=== PATIENT | male | born 2000 | race American Indian/Alaskan Native ===

== ENCOUNTER 2021-09-16 17:07 | Emergency (ER) | payer OTHER ==
[2021-09-16 17:21] VITALS: BP 124/64
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
--- NOTE | 2021-09-16 19:18 | XRay Report ---
Thoracic spine 3 views INDICATION: Neck pain following injury IMPRESSION: No fracture or subluxation is identified. Limited views of T1-T3 on the arm up view. Signer Name: Faraz Molina MD Signed: 09/16/2021 7:14 PM Workstation Name: [id number]
--- NOTE | 2021-09-16 19:20 | XRay Report ---
Left ankle 3 views INDICATION: Left ankle pain IMPRESSION: No fracture or subluxation of the left ankle is identified. Mild edema is seen beneath th e lateral malleolus. Signer Name: Faraz Molina MD Signed: 09/16/2021 7:16 PM Workstation Name: [id number]
== END 2021-09-16 20:42 | disposition home or self-care (01) ==
LOC: ED 17:07
DX: M25.572 Pain in left ankle and joints of left foot (principal); M54.6 Pain in thoracic spine; M54.2 Cervicalgia; Z79.899 Other long term (current) drug therapy; V87.7XXA Person injured in collision between other specified motor vehicles (traffic), initial encounter; Y93.89 Activity, other specified; Y92.488 Other paved roadways as the place of occurrence of the external cause; Y99.8 Other external cause status
CPT/HCPCS: 72072; 99283